=== PATIENT | male | born 1965 | race Hispanic/Latino ===

== ENCOUNTER 2020-05-18 07:00 | Day surgery (SDC) | payer MEDICARE ==
[2020-05-11 09:18] LABS: BASOPHILS % (AUTO) 0.7 % (0.0-5.0); EOSINOPHILS % (AUTO) 4.4 % (0.0-8.0); HEMATOCRIT 38.5 % (42-54); LYMPHOCYTES % (AUTO) 22.2 % (21.0-51.0); MEAN CORPUSCULAR HEMOGLOBIN 33.5 pg (27.0-33.0); MEAN CORPUSCULAR VOLUME 101.6 fL (79-99); MONOCYTES % (AUTO) 13.3 % (3.0-13.0); NEUTROPHILS % (AUTO) 59.2 % (40.0-77.0); PLATELET COUNT (AUTO) 170 K/uL (130-400); RED BLOOD CELL COUNT(AUTO) 3.79 MIL/uL (4.50-6.20); RED CELL DISTRIBUTION WIDTH 13.2 % (11.0-15.5); WHITE BLOOD COUNT (AUTO) 5.9 K/uL (4.8-10.8)
[2020-05-11 09:31] LABS: HEMOGLOBIN A1C 6.1 % (4.0-6.0)
[2020-05-11 09:37] LABS: INR 0.95 (0.85-1.15); PARTIAL THROMBOPLASTIN TIME 26.4 SEC (26.3-35.5); PROTHROMBIN TIME 10.3 SEC (9.6-11.6)
[2020-05-11 09:39] LABS: ALBUMIN 3.8 g/dL (3.5-5.0); BILIRUBIN,TOTAL 0.5 mg/dL (0.2-1.0); POTASSIUM 5.9 mmol/L (3.5-5.1); TOTAL PROTEIN, SERUM 7.8 g/dL (6.0-8.3)
[2020-05-11 09:45] LABS: CREATININE 9.9 mg/dL (0.5-1.5)
[2020-05-13] MEDS: CEFUROXIME SODIUM 1.5 GM VIAL IVP SCH (07:30)
--- NOTE | 2020-05-17 12:25 | NUR ---
LABS/EKG INFORMED AAKASH TOLEDO OF ABNORMAL BUN/CREA/POTASSIUM AND EKG. PER DR. ESCUDERO, REPEAT POTASSIUM IN AM.
[2020-05-17 12:35] VITALS: BP 117/57
--- NOTE | 2020-05-17 14:16 | NUR ---
EKG DR STOLL INFORMED OF EKG. NO ORDERS RECEIVED. PROCEED WITH PLANNED PROCEDURE.
[~2020-05-18] VITALS: Ht 179.1 cm; Wt 96.5 kg
[2020-05-18] VITALS (18 sets, daily range): BP systolic 116–152; BP diastolic 61–83
[~2020-05-18 07:00] MED LIST: CALC667T8 PO; CARV25TA PO; INSU10VI3 SQ; PRAV40TA3 PO; SEVE800T27 PO
[2020-05-18] MEDS ORDERED: CEFAZOLIN SODIUM 1 GM VIAL ONE (07:20)
[2020-05-18] MEDS ORDERED: SODIUM CHLORIDE 0.9% 1000ML 1,000 ML IV ONE (07:35)
[2020-05-18] MEDS ORDERED: SUCCINYLCHOLINE CHLORIDE 20 MG/ML 10 ML VIAL ONE (07:47)
[2020-05-18] MEDS ORDERED: ONDANSETRON HCL 4 MG/2 ML VIAL ONE (07:47)
[2020-05-18] MEDS ORDERED: DEXAMETHASONE SOD PHOSPHATE 10MG/ML 1ML VIAL ONE (07:47)
[2020-05-18] MEDS ORDERED: PROPOFOL 10 MG/ML 20ML VIAL IV ONE ×2 (07:47→08:50)
[2020-05-18] MEDS ORDERED: LIDOCAINE PF 2% 5ML ABBOJECT ONE ×2 (07:47→07:48)
[2020-05-18] MEDS ORDERED: GLYCOPYRROLATE 1 MG/5 ML SYRINGE ONE (07:47)
[2020-05-18] MEDS ORDERED: MIDAZOLAM HCL 1 MG/ML 2ML VIAL ONE (07:48)
[2020-05-18] MEDS ORDERED: NEOSTIGMINE 5MG/5ML SYR IV ONE (07:48)
[2020-05-18] MEDS ORDERED: ROCURONIUM 10MG/1ML SYR 10 MG/ML ML ONE (07:48)
[2020-05-18] MEDS ORDERED: FENTANYL CITRATE PF 50 MCG/1 ML 2ML VIAL ONE (07:48)
[2020-05-18] MEDS: CEFUROXIME SODIUM 1.5 GM VIAL IVP SCH (07:50)
[2020-05-18] MEDS ORDERED: PHENYLEPHRINE HCL 10 MG/ML 1ML VIAL IV ONE (08:03)
--- NOTE | 2020-05-18 10:15 | NUR ---
Pt received Pt received from PACU via stretcher accompanied by Nathaniel RN. Pt AAOX3, has kerlix wrap to right upper arm. Strong bruit was auscultated. Dressing dry and intact. Pt denies any pain or discomfort. VS wnl.
--- NOTE | 2020-05-18 11:10 | NUR ---
Pt D/C Pt prepared for discharge. Pt remains AAOx3. Bruit auscultated; strong. Denies any pain or discomfort. Dressing remains dry and intact. Sister is at bedside. Discharge instructions verbal and copy were given. Pt and sister verbalized understanding and all questions concerns were addressed. Also gave rx and instructions on med given. Pt was then taken out of facility via w/c. Sister in car. Pt and sister very appreciative of care.
== END 2020-05-18 11:20 | disposition home or self-care (01) ==
LOC: DAH 07:00
PROVIDERS: ATTEND Thoracic Surgery (Cardiothoracic Vascular Surgery)
DX: T82.898A Other specified complication of vascular prosthetic devices, implants and grafts, initial encounter (principal); I72.1 Aneurysm of artery of upper extremity; I12.0 Hypertensive chronic kidney disease with stage 5 chronic kidney disease or end stage renal disease; N18.6 End stage renal disease; E78.00 Pure hypercholesterolemia, unspecified; Z99.2 Dependence on renal dialysis; Y83.8 Other surgical procedures as the cause of abnormal reaction of the patient, or of later complication, without mention of misadventure at the time of the procedure; Z79.01 Long term (current) use of anticoagulants; Z79.899 Other long term (current) drug therapy; Z20.828 Contact with and (suspected) exposure to other viral communicable diseases
CPT/HCPCS: 36415 ×2; 36832; 71046; 80053; 82948 ×2; 83036; 84132; 85025; 85610; 85730; 88304; 93005; A4215; A4221; A4222; A4223; A4663; A6207; A6260; C1713 ×2; C9803; G0168; J0330; J0690; J0697 ×2; J1100; J1644; J2001 ×2; J2250; J2370; J2405; J2704 ×2; J2710; J3010; J3490; J7030; U0003

== ENCOUNTER 2020-07-01 08:28 | Day surgery (SDC) | payer MEDICARE ==
[2020-06-29 13:01] LABS: BASOPHILS % (AUTO) 0.8 % (0.0-5.0); EOSINOPHILS % (AUTO) 3.3 % (0.0-8.0); HEMATOCRIT 38.8 % (42-54); LYMPHOCYTES % (AUTO) 18.2 % (21.0-51.0); MEAN CORPUSCULAR HEMOGLOBIN 34.2 pg (27.0-33.0); MEAN CORPUSCULAR HGB CONC 33.2 g/dL (32.0-36.0); MEAN CORPUSCULAR VOLUME 102.9 fL (79-99); MONOCYTES % (AUTO) 11.9 % (3.0-13.0); NEUTROPHILS % (AUTO) 65.6 % (40.0-77.0); PLATELET COUNT (AUTO) 183 K/uL (130-400); RED BLOOD CELL COUNT(AUTO) 3.77 MIL/uL (4.50-6.20); RED CELL DISTRIBUTION WIDTH 14.6 % (11.0-15.5); WHITE BLOOD COUNT (AUTO) 6.3 K/uL (4.8-10.8)
[2020-06-29 13:08] LABS: INR 0.94 (0.85-1.15); PARTIAL THROMBOPLASTIN TIME 27.1 SEC (26.3-35.5); PROTHROMBIN TIME 10.2 SEC (9.6-11.6)
[2020-06-29 13:22] LABS: CREATININE 10.4 mg/dL (0.5-1.5)
[2020-06-30 09:37] VITALS: BP 92/53
[~2020-07-01] VITALS: Ht 180.3 cm; Wt 97.2 kg
[2020-07-01] VITALS (16 sets, daily range): BP systolic 97–129; BP diastolic 46–73
[~2020-07-01 08:28] MED LIST changes: +AMIT25TA9 PO; +CEFUROXIME SODIUM 1.5 GM VIAL IVP SCH
[2020-07-01] MEDS ORDERED: SODIUM CHLORIDE 0.9% 1000ML 1,000 ML IV ONE (12:13)
[2020-07-01] MEDS ORDERED: LIDOCAINE PF 2% 5ML ABBOJECT ONE (12:32)
[2020-07-01] MEDS ORDERED: FENTANYL CITRATE PF 50 MCG/1 ML 2ML VIAL ONE (12:33)
[2020-07-01] MEDS ORDERED: PROPOFOL 10 MG/ML 20ML VIAL IV ONE (12:34)
[2020-07-01] MEDS ORDERED: ROCURONIUM 10MG/1ML SYR 10 MG/ML ML ONE (12:34)
[2020-07-01] MEDS ORDERED: MIDAZOLAM HCL 1 MG/ML 2ML VIAL ONE (12:34)
[2020-07-01] MEDS ORDERED: GLYCOPYRROLATE 1 MG/5 ML SYRINGE ONE (14:01)
[2020-07-01] MEDS ORDERED: NEOSTIGMINE 5MG/5ML SYR IV ONE (14:01)
[2020-07-01] MEDS ORDERED: DEXTROSE 50%-WATER 50 ML DISP.SYRIN IV SCH (15:30)
== END 2020-07-01 16:00 | disposition home or self-care (01) ==
LOC: DAH 08:28
PROVIDERS: ATTEND Thoracic Surgery (Cardiothoracic Vascular Surgery)
DX: I72.1 Aneurysm of artery of upper extremity (principal); I12.0 Hypertensive chronic kidney disease with stage 5 chronic kidney disease or end stage renal disease; N18.6 End stage renal disease; E78.00 Pure hypercholesterolemia, unspecified; Z99.2 Dependence on renal dialysis; Z98.890 Other specified postprocedural states; Z79.899 Other long term (current) drug therapy; Z20.828 Contact with and (suspected) exposure to other viral communicable diseases
CPT/HCPCS: 36415 ×2; 36832; 71046; 80048; 82948 ×3; 85025; 85610; 85730; 86850; 86900; 86901; 93005; A4215; A4221; A4222; A4649; A4663; A6207; A6260; C1713 ×2; C9803; G0168; J0697; J1644; J2001; J2250; J2704; J2710; J3010; J3490; J7030 ×2; J7070; U0003

== ENCOUNTER → 2022-12-04 | Outpatient (CLI) | payer MEDICARE, OTHER ==
[~2022-12-04] MED LIST changes: +ALBUMIN (HUMAN) 25% 200 ML IV SCH; -CEFUROXIME SODIUM 1.5 GM VIAL IVP SCH; +LIDOCAINE HCL 1% 20 ML VIAL ONE
[2022-12-04 08:40] LABS: BASOPHILS % (AUTO) 0.7 % (0.0-5.0); HEMATOCRIT 35.5 % (42-54); LYMPHOCYTES % (AUTO) 13.4 % (21.0-51.0); MEAN CORPUSCULAR HEMOGLOBIN 31.7 pg (27.0-33.0); MEAN CORPUSCULAR HGB CONC 32.4 g/dL (32.0-36.0); MEAN CORPUSCULAR VOLUME 97.8 fL (79-99); MONOCYTES % (AUTO) 12.7 % (3.0-13.0); PLATELET COUNT (AUTO) 103 K/uL (130-400); RED BLOOD CELL COUNT(AUTO) 3.63 MIL/uL (4.50-6.20); RED CELL DISTRIBUTION WIDTH 16.6 % (11.0-15.5)
[2022-12-04 08:49] LABS: INR 1.19 (0.85-1.15); PROTHROMBIN TIME 12.8 SEC (9.6-11.6)
[2022-12-04 08:50] LABS: PARTIAL THROMBOPLASTIN TIME 30.7 SEC (26.3-35.5)
[2022-12-04 08:55] LABS: TOTAL PROTEIN, SERUM 7.7 g/dL (6.0-8.3)
[2022-12-04 09:05] LABS: CREATININE 8.2 mg/dL (0.5-1.5); POTASSIUM 6.4 mmol/L (3.5-5.1)
[2022-12-04 12:24] LABS: ALBUMIN,BODY FLUID 2.4 g/dL
[2022-12-04 12:49] LABS: APPEARANCE BODY FLUID SLIGHTLY CLOUDY (CLEAR); COLOR,BODY FLUID DARK YELLOW (LT YELLOW); SPECIMENTYPE,BODY FLUID ASCITES; TOTAL VOLUME,BODY FLUID 6100 mL
[2022-12-04 13:00] LABS: BODY FLUID RBC 12415 /cu. mm.; BODY FLUID WBC 208 /cu. mm.
[2022-12-04 13:48] LABS: BF LYMPHOCYTE 18 %; BF MESOTHELIAL 79 %
== END | disposition home or self-care (01) ==
LOC: RAH 07:30
PROVIDERS: ATTEND Internal Medicine Gastroenterology
DX: R18.8 Other ascites (principal); K74.69 Other cirrhosis of liver; I12.0 Hypertensive chronic kidney disease with stage 5 chronic kidney disease or end stage renal disease; N18.6 End stage renal disease; E78.00 Pure hypercholesterolemia, unspecified; Z99.2 Dependence on renal dialysis; Z79.01 Long term (current) use of anticoagulants; Z79.899 Other long term (current) drug therapy
CPT/HCPCS: 49083; 84157; 80053; 85025; 89051; 85610; 85730; 87071; 87076; 87205; 82042; 36415; 88108; 88305; P9046; C1729

== ENCOUNTER → 2023-03-15 | Outpatient (CLI) | payer OTHER ==
[~2023-03-15] MED LIST changes: -LIDOCAINE HCL 1% 20 ML VIAL ONE
[2023-03-15 09:05] LABS: BASOPHILS # (AUTO) 0.03 K/uL (0.00-0.20); EOSINOPHILS # (AUTO) 0.14 K/uL (0.00-0.70); EOSINOPHILS % (AUTO) 4.8 % (0.0-8.0); HEMATOCRIT 32.6 % (42-54); IMMATURE GRANULOCYTE ABSOLUTE 0.01 K/uL (0-1); LYMPHOCYTES # (AUTO) 0.5 K/uL (1.0-4.8); LYMPHOCYTES % (AUTO) 17.2 % (21.0-51.0); MEAN CORPUSCULAR HEMOGLOBIN 30.9 pg (27.0-33.0); MEAN CORPUSCULAR HGB CONC 31.3 g/dL (32.0-36.0); MEAN CORPUSCULAR VOLUME 98.8 fL (79-99); MONOCYTES # (AUTO) 0.5 K/uL (0.1-1.0); MONOCYTES % (AUTO) 15.5 % (3.0-13.0); NEUTROPHILS # (AUTO) 1.8 K/uL (1.8-7.7); NEUTROPHILS % (AUTO) 61.2 % (40.0-77.0); PLATELET COUNT (AUTO) 100 K/uL (130-400); RED CELL DISTRIBUTION WIDTH 15.9 % (11.0-15.5); WHITE BLOOD COUNT (AUTO) 2.9 K/uL (4.8-10.8)
[2023-03-15 09:20] LABS: INR 1.13 (0.85-1.15)
[2023-03-15 09:21] LABS: PARTIAL THROMBOPLASTIN TIME 31.9 SEC (26.3-35.5)
[2023-03-15 09:22] LABS: ALBUMIN 3.7 g/dL (3.5-5.0); BILIRUBIN,TOTAL 1.2 mg/dL (0.2-1.0); CREATININE 5.4 mg/dL (0.5-1.5); POTASSIUM 4.4 mmol/L (3.5-5.1); TOTAL PROTEIN, SERUM 7.5 g/dL (6.0-8.3)
[2023-03-15 09:45] LABS: EOSINOPHILS % (MANUAL) 4 % (1-6); LYMPHOCYTES % (MANUAL) 12 % (22-44); MAN.DIFF COMMENT-IMPRESSION MANUAL DIFFERENTIAL; MONOCYTES % (MANUAL) 7 % (2-9); SEGMENTED NEUTROPHILS % 77 % (40-70); TOTAL CELLS COUNTED 100
[2023-03-15 09:46] LABS: PLATELET MORPHOLOGY COMMENT DECREASED
[2023-03-15 16:27] LABS: APPEARANCE BODY FLUID CLOUDY (CLEAR); SPECIMENTYPE,BODY FLUID ASCITES; TOTAL VOLUME,BODY FLUID 6900 mL
[2023-03-15 16:28] LABS: COLOR,BODY FLUID ORANGE (LT YELLOW)
[2023-03-15 16:34] LABS: BODY FLUID RBC 15955 /cu. mm.; BODY FLUID WBC 125 /cu. mm.
[2023-03-15 16:39] LABS: ALBUMIN,BODY FLUID 2.4 g/dL; TOTAL PROTEIN,BODY FLUID 4.3 g/dL
[2023-03-15 17:15] LABS: BF LYMPHOCYTE 18 %; BF MACROPHAGE 69; BF MONOCYTE 2 %; BF OTHER CELLS 6; BF TOTAL CELLS COUNTED 100
== END | disposition home or self-care (01) ==
LOC: RAH 07:57
PROVIDERS: ATTEND Internal Medicine Gastroenterology
DX: R18.8 Other ascites (principal); I12.0 Hypertensive chronic kidney disease with stage 5 chronic kidney disease or end stage renal disease; N18.6 End stage renal disease; E78.00 Pure hypercholesterolemia, unspecified; Z99.2 Dependence on renal dialysis; Z79.01 Long term (current) use of anticoagulants; Z79.899 Other long term (current) drug therapy; K74.69 Other cirrhosis of liver
CPT/HCPCS: 49083; 84157; 80053; 85025; 89051; 85610; 85730; 87071; 87205; 82042; 86038; 36415; C1729; 96365

== ENCOUNTER → 2023-07-17 | Outpatient (CLI) | payer OTHER ==
[~2023-07-17] MED LIST changes: -ALBUMIN (HUMAN) 25% 200 ML IV SCH; +ALPR0.5T8 PO; +AMOX1TAB41 PO; +CINA60TA4 PO; +DOXY100T2 PO; -INSU10VI3 SQ; +LOSA50TA64 PO; +PANT40TA54 PO
== END | disposition home or self-care (01) ==
LOC: RAH 09:09
PROVIDERS: ATTEND Internal Medicine
DX: J90 Pleural effusion, not elsewhere classified (principal); Z79.01 Long term (current) use of anticoagulants; Z79.899 Other long term (current) drug therapy
CPT/HCPCS: 32555; 71045; C1729

== ENCOUNTER 2023-11-12 20:28 | Emergency (ER) | payer OTHER ==
[~2023-11-12] VITALS: Ht 175.3 cm; Wt 88.5 kg
[2023-11-12 20:33] VITALS: BP 189/89; PULSE 73; RESP 16; O2SAT 96
[2023-11-12 21:19] LABS: BASOPHILS # (AUTO) 0.02 K/uL (0.00-0.20); BASOPHILS % (AUTO) 0.4 % (0.0-5.0); EOSINOPHILS # (AUTO) 0.19 K/uL (0.00-0.70); EOSINOPHILS % (AUTO) 4.2 % (0.0-8.0); HEMATOCRIT 28.6 % (42-54); IMMATURE GRANULOCYTE ABSOLUTE 0.01 K/uL (0-1); LYMPHOCYTES # (AUTO) 0.7 K/uL (1.0-4.8); LYMPHOCYTES % (AUTO) 14.5 % (21.0-51.0); MEAN CORPUSCULAR HEMOGLOBIN 31.3 pg (27.0-33.0); MEAN CORPUSCULAR HGB CONC 34.6 g/dL (32.0-36.0); MEAN CORPUSCULAR VOLUME 90.5 fL (79-99); MONOCYTES # (AUTO) 0.7 K/uL (0.1-1.0); MONOCYTES % (AUTO) 14.7 % (3.0-13.0); PLATELET COUNT (AUTO) 126 K/uL (130-400); RED BLOOD CELL COUNT(AUTO) 3.16 MIL/uL (4.50-6.20); RED CELL DISTRIBUTION WIDTH 13.7 % (11.0-15.5); WHITE BLOOD COUNT (AUTO) 4.6 K/uL (4.8-10.8)
[2023-11-12 21:30] LABS: INR 1.03 (0.85-1.15); PROTHROMBIN TIME 12.1 SEC (9.6-11.6)
[2023-11-12 21:31] LABS: PARTIAL THROMBOPLASTIN TIME 31.3 SEC (26.3-35.5)
[2023-11-12 21:32] LABS: ALBUMIN 3.8 g/dL (3.5-5.0); BILIRUBIN,TOTAL 0.9 mg/dL (0.2-1.0); CREATININE 5.1 mg/dL (0.5-1.3); POTASSIUM 4.7 mmol/L (3.5-5.1); TOTAL PROTEIN, SERUM 7.9 g/dL (6.0-8.3)
== END 2023-11-12 22:35 | disposition home or self-care (01) ==
LOC: EDH 20:28
DX: R04.0 Epistaxis (principal); Z99.2 Dependence on renal dialysis; E11.9 Type 2 diabetes mellitus without complications; E78.00 Pure hypercholesterolemia, unspecified; F41.9 Anxiety disorder, unspecified; I10 Essential (primary) hypertension; Z79.899 Other long term (current) drug therapy
CPT/HCPCS: 36415; 80053; 85025; 85610; 85730; 99282